=== PATIENT | female | born 1955 | race Caucasian/White ===

== ENCOUNTER 2021-06-22 10:17 | Observation (INO) | payer OTHER ==
[2021-06-19 10:09] LABS: BASOPHILS % (AUTO) 0.6 % (0.0-5.0); EOSINOPHILS % (AUTO) 1.9 % (0.0-8.0); HEMATOCRIT 41.2 % (36-48); LYMPHOCYTES % (AUTO) 39.9 % (21.0-51.0); MEAN CORPUSCULAR HEMOGLOBIN 27.8 pg (27.0-33.0); MEAN CORPUSCULAR HGB CONC 31.6 g/dL (32.0-36.0); MONOCYTES % (AUTO) 11.2 % (3.0-13.0); NEUTROPHILS % (AUTO) 46.2 % (40.0-77.0); PLATELET COUNT (AUTO) 294 K/uL (130-400); RED BLOOD CELL COUNT(AUTO) 4.68 MIL/uL (4.00-5.50); RED CELL DISTRIBUTION WIDTH 14.2 % (11.0-15.5); WHITE BLOOD COUNT (AUTO) 8.1 K/uL (4.8-10.8)
[2021-06-19 10:16] LABS: APPEARANCE,URINE Clear (CLEAR); BILIRUBIN,URINE Negative (NEGATIVE); COLOR,URINE Yellow (YELLOW); GLUCOSE, URINE (UA) Negative (NEGATIVE); KETONES,URINE Negative (NEGATIVE); LEUKOCYTE ESTERASE ,URINE Negative (NEGATIVE); NITRATE,URINE Negative (NEGATIVE); OCCULT BLOOD,URINE Negative (NEGATIVE); PH,URINE 6.5 (5.0-8.0); PROTEIN,URINE Negative (NEGATIVE); UROBILINOGEN,URINE 0.2 mg/dL (0.2-1.0)
[2021-06-19 10:18] LABS: CREATININE 0.9 mg/dL (0.5-1.5); POTASSIUM 4.4 mmol/L (3.5-5.1)
[2021-06-19 10:19] LABS: INR 0.97 (0.85-1.15); PROTHROMBIN TIME 10.6 SEC (9.6-11.6)
[2021-06-19 14:13] VITALS: BP 159/75
[2021-06-22] VITALS (24 sets, daily range): BP systolic 107–145; BP diastolic 65–83
[~2021-06-22] VITALS: Ht 170.2 cm; Wt 126.8 kg
[~2021-06-22 10:17] MED LIST: CEFAZOLIN SODIUM 1 GM VIAL IVP SCH; CETI10TA57 PO; FLUT16H NASAL; LOSA1TAB42 PO; MONT-39 PO; OMEP40CA21 PO; ROSU10TA28 PO
[2021-06-22] MEDS ORDERED: LACTATED RINGERS 1000ML 1,000 ML IV ONE (11:37)
[2021-06-22] MEDS: CLINDAMYCIN IVPB 900MG/50ML 50 ML IV ONE (12:30)
[2021-06-22] MEDS ORDERED: TRANEXAMIC ACID 1000MG/10ML ONE ×2 (13:39→17:26)
[2021-06-22] MEDS ORDERED: CLINDAMYCIN 900MG/6ML INJ ONE (13:39)
[2021-06-22] MEDS ORDERED: SUCCINYLCHOLINE CHLORIDE 20 MG/ML 10 ML VIAL ONE (14:24)
[2021-06-22] MEDS ORDERED: DEXAMETHASONE SOD PHOSPHATE 10MG/ML 1ML VIAL ONE (14:24)
[2021-06-22] MEDS ORDERED: NEOSTIGMINE 5MG/5ML SYR IV ONE (14:24)
[2021-06-22] MEDS ORDERED: GLYCOPYRROLATE 1 MG/5 ML SYRINGE ONE (14:24)
[2021-06-22] MEDS ORDERED: ONDANSETRON 4MG INJ ONE (14:24)
[2021-06-22] MEDS ORDERED: LIDOCAINE PF 100MG/5ML (2%) SYRINGE 5ML ONE (14:24)
[2021-06-22] MEDS ORDERED: PROPOFOL 10 MG/ML 20ML VIAL IV ONE (14:24)
[2021-06-22] MEDS ORDERED: MIDAZOLAM HCL 1 MG/ML 2ML VIAL ONE (14:24)
[2021-06-22] MEDS ORDERED: FENTANYL CITRATE PF 50 MCG/1 ML 2ML VIAL ONE (14:24)
[2021-06-22] MEDS ORDERED: ROCURONIUM 10MG/1ML SYR 10 MG/ML ML ONE (14:25)
[2021-06-22] MEDS ORDERED: MEPERIDINE-PF 25 MG/ML SYG ONE ×2 (14:26→17:45)
[2021-06-22] MEDS ORDERED: EPHEDRINE SULFATE 50 MG/ML AMPULE ONE (15:25)
[2021-06-22] MEDS ORDERED: FENTANYL CITRATE PF 50 MCG/1 ML 5ML AMP IV ONE (16:16)
[2021-06-22] MEDS ORDERED: KETOROLAC 30MG VIAL (30MG/ML) ONE (16:44)
[2021-06-22] MEDS ORDERED: LIDOCAINE HCL-MPF 1% 5ML AMP IJ ONE (16:58)
[2021-06-22] MEDS ORDERED: FERROUS FUMARATE 324 MG TABLET PO PRN (17:00)
[2021-06-22] MEDS ORDERED: KETOROLAC 15MG/ML VIAL (15MG/ML) IV PRN (17:00)
[2021-06-22] MEDS ORDERED: LIDOCAINE HCL-MPF 1% 2ML VIAL IV PRN (17:00)
[2021-06-22] MEDS ORDERED: DiphenhydrAMINE HCL 50 MG/ML VIAL IVP PRN (17:00)
[2021-06-22] MEDS ORDERED: KCL 20 MEQ ERTAB PO PRN (17:00)
[2021-06-22] MEDS ORDERED: POTASSIUM CHLORIDE 10% ELIXIR 20 MEQ/15 ML UDCUP PO PRN (17:00)
[2021-06-22] MEDS ORDERED: OXYCODONE HCL 5 MG TAB PO PRN (17:00)
[2021-06-22] MEDS ORDERED: POTASSIUM CHLORIDE 20MEQ/100ML 100 ML IV PRN (17:00)
[2021-06-22] MEDS ORDERED: CALCIUM CARB 500MG PO PRN (17:00)
[2021-06-22] MEDS ORDERED: ONDANSETRON 4MG INJ IVP PRN (17:00)
[2021-06-22] MEDS: CELECOXIB 200 MG CAP PO SCH (20:49)
[2021-06-22] MEDS: ATORVASTATIN 20 MG TABLET PO SCH (20:49)
[2021-06-22] MEDS: MONTELUKAST SODIUM 10 MG TAB PO SCH (20:49)
[2021-06-22] MEDS: OXYCODONE HCL 5 MG TAB PO PRN (20:50)
[2021-06-23] VITALS (7 sets, daily range): BP systolic 95–125; BP diastolic 54–68
[2021-06-23] MEDS: OXYCODONE HCL 5 MG TAB PO PRN ×5 (01:16→21:56)
[2021-06-23] MEDS: CLINDAMYCIN IVPB 900MG/50ML 50 ML IV SCH ×2 (01:16→06:21)
[2021-06-23] MEDS: ACETAMINOPHEN 500 MG TABLET PO SCH ×3 (01:17→17:00)
[2021-06-23] MEDS: 0.9%NACL 1000ML 1,000 ML IV SCH ×2 (03:00→13:00)
[2021-06-23 04:57] LABS: HEMATOCRIT 34.3 % (36-48); MEAN CORPUSCULAR HEMOGLOBIN 27.6 pg (27.0-33.0); MEAN CORPUSCULAR HGB CONC 30.9 g/dL (32.0-36.0); MEAN CORPUSCULAR VOLUME 89.3 fL (79-99); PLATELET COUNT (AUTO) 234 K/uL (130-400); RED BLOOD CELL COUNT(AUTO) 3.84 MIL/uL (4.00-5.50); RED CELL DISTRIBUTION WIDTH 14.2 % (11.0-15.5); WHITE BLOOD COUNT (AUTO) 12.1 K/uL (4.8-10.8)
[2021-06-23 05:40] LABS: CREATININE 0.7 mg/dL (0.5-1.5); POTASSIUM 4.1 mmol/L (3.5-5.1)
[2021-06-23] MEDS: TRAMADOL HCL 50 MG TABLET PO PRN ×2 (08:13→16:22)
[2021-06-23] MEDS: HYDROCHLOROTHIAZIDE 25 MG TABLET PO SCH (09:00)
[2021-06-23] MEDS: LOSARTAN 100 MG TABLET PO SCH (09:00)
[2021-06-23] MEDS: FLUTICASONE PROPIONATE 50MCG/SPRAY 16 GM BOTTLE EN SCH (09:00)
[2021-06-23] MEDS: CELECOXIB 200 MG CAP PO SCH ×2 (09:05→21:56)
[2021-06-23] MEDS: CETIRIZINE HCL 5 MG TABLET PO SCH (09:05)
[2021-06-23] MEDS: PANTOPRAZOLE 40 MG TAB DR PO SCH (09:05)
[2021-06-23] MEDS: APIXABAN 2.5 MG TABLET PO SCH ×2 (09:06→21:56)
[2021-06-23] MEDS: POLYETHYLENE GLYCOL 3350 17 GM POWD.PACK PO SCH (09:07)
[2021-06-23] MEDS ORDERED: PROMETHAZINE HCL 25 MG/ML 1ML AMPULE IM SCH (11:00)
[2021-06-23] MEDS: ATORVASTATIN 20 MG TABLET PO SCH (21:56)
[2021-06-23] MEDS: MONTELUKAST SODIUM 10 MG TAB PO SCH (21:56)
[2021-06-24] MEDS: ACETAMINOPHEN 500 MG TABLET PO SCH ×3 (00:26→17:09)
[2021-06-24] MEDS: OXYCODONE HCL 5 MG TAB PO PRN ×4 (02:15→17:08)
[2021-06-24 04:10] VITALS: BP 114/58
[2021-06-24 07:30] VITALS: BP 98/53
[2021-06-24] MEDS: CELECOXIB 200 MG CAP PO SCH (08:16)
[2021-06-24] MEDS: CETIRIZINE HCL 5 MG TABLET PO SCH (08:16)
[2021-06-24] MEDS: POLYETHYLENE GLYCOL 3350 17 GM POWD.PACK PO SCH (08:17)
[2021-06-24] MEDS: APIXABAN 2.5 MG TABLET PO SCH (08:17)
[2021-06-24] MEDS: PANTOPRAZOLE 40 MG TAB DR PO SCH (08:17)
[2021-06-24] MEDS: FLUTICASONE PROPIONATE 50MCG/SPRAY 16 GM BOTTLE EN SCH (08:18)
[2021-06-24] MEDS: HYDROCHLOROTHIAZIDE 25 MG TABLET PO SCH (08:20)
[2021-06-24] MEDS: LOSARTAN 100 MG TABLET PO SCH (08:20)
[2021-06-24 11:00] VITALS: BP 122/61
[2021-06-24 16:00] VITALS: BP 128/66
[2021-06-24] MEDS ORDERED: APIX2.5T PO (16:32)
[2021-06-24] MEDS ORDERED: HYDR-4060 PO (16:32)
[2021-06-25] MEDS ORDERED: BISACODYL 10 MG SUPP.RECT RC PRN (17:00)
== END 2021-06-24 19:35 | disposition home or self-care (01) ==
LOC: DAH 10:17 → 3AH 10:18 → DAH 17:00
PROVIDERS: ADMIT Orthopaedic Surgery; ATTEND Orthopaedic Surgery
DX: M17.11 Unilateral primary osteoarthritis, right knee (principal); Z20.822 Contact with and (suspected) exposure to COVID-19; D64.9 Anemia, unspecified; M21.161 Varus deformity, not elsewhere classified, right knee; I10 Essential (primary) hypertension; K57.30 Diverticulosis of large intestine without perforation or abscess without bleeding; K44.9 Diaphragmatic hernia without obstruction or gangrene; G89.29 Other chronic pain; M25.561 Pain in right knee; Z96.652 Presence of left artificial knee joint; Z79.899 Other long term (current) drug therapy; Z98.890 Other specified postprocedural states; Z87.891 Personal history of nicotine dependence
CPT/HCPCS: 27447; 36415 ×2; 64447; 76942; 80048 ×2; 81003; 85025; 85027; 85610; 87088; 87635; 87641; 88305; 88311; 93005; 96365; 96366; 96372; 96375; 97039 ×3; 97116 ×4; 97161; 97530 ×4; A4215; A4221; A4222; A4223; A4600; A4649 ×3; A4663; A4930 ×2; A5120; A9272; C1776; C9803; G0378 ×49; J0330; J1100; J1885 ×2; J2001; J2175 ×2; J2250; J2405 ×2; J2704; J2710; J3010 ×2; J3490 ×8; J7120 ×2

== ENCOUNTER → 2023-08-16 | Outpatient (CLI) | payer OTHER ==
[~2023-08-16] MED LIST changes: +APIX2.5T PO; -CEFAZOLIN SODIUM 1 GM VIAL IVP SCH; +HYDR-4060 PO
[2023-08-16 14:02] LABS: BASOPHILS # (AUTO) 0.03 K/uL (0.00-0.20); BASOPHILS % (AUTO) 0.3 % (0.0-5.0); EOSINOPHILS # (AUTO) 0.11 K/uL (0.00-0.70); HEMATOCRIT 46.1 % (36-48); IMMATURE GRANULOCYTE ABSOLUTE 0.02 K/uL (0-1); LYMPHOCYTES # (AUTO) 4.9 K/uL (1.0-4.8); LYMPHOCYTES % (AUTO) 43.2 % (21.0-51.0); MEAN CORPUSCULAR HEMOGLOBIN 29.5 pg (27.0-33.0); MEAN CORPUSCULAR HGB CONC 33.2 g/dL (32.0-36.0); MEAN CORPUSCULAR VOLUME 88.8 fL (79-99); MONOCYTES # (AUTO) 0.8 K/uL (0.1-1.0); MONOCYTES % (AUTO) 7.1 % (3.0-13.0); NEUTROPHILS # (AUTO) 5.5 K/uL (1.8-7.7); NEUTROPHILS % (AUTO) 48.2 % (40.0-77.0); PLATELET COUNT (AUTO) 305 K/uL (130-400); RED BLOOD CELL COUNT(AUTO) 5.19 MIL/uL (4.00-5.50); RED CELL DISTRIBUTION WIDTH 13.1 % (11.0-15.5); WHITE BLOOD COUNT (AUTO) 11.3 K/uL (4.8-10.8)
[2023-08-16 14:34] LABS: ALBUMIN 3.8 g/dL (3.5-5.0); BILIRUBIN,TOTAL 0.3 mg/dL (0.2-1.0); POTASSIUM 4.1 mmol/L (3.5-5.1); THYROID STIMULATING HORMONE 2.04 uIU/mL (0.36-3.74); TOTAL PROTEIN, SERUM 7.7 g/dL (6.0-8.3)
== END | disposition home or self-care (01) ==
LOC: LAB 13:15
PROVIDERS: ATTEND Internal Medicine Gastroenterology
DX: R10.13 Epigastric pain (principal); R63.4 Abnormal weight loss
CPT/HCPCS: 36415; 80053; 82150; 83690; 84443; 85025

== ENCOUNTER → 2023-08-24 | Outpatient (CLI) | payer OTHER ==
[~2023-08-24] MED LIST changes: +IOHEXOL 350 MG/ML 100ML INFUS..BTL IV ONE
== END | disposition home or self-care (01) ==
LOC: RAH 07:43
PROVIDERS: ATTEND Internal Medicine Gastroenterology
DX: K57.30 Diverticulosis of large intestine without perforation or abscess without bleeding (principal); R10.13 Epigastric pain; R63.4 Abnormal weight loss
CPT/HCPCS: 74178; Q9967; 36415; 80053; 82150; 83690; 84443; 85025

== ENCOUNTER → 2023-09-07 | Outpatient (CLI) | payer OTHER ==
[~2023-09-07] MED LIST changes: -IOHEXOL 350 MG/ML 100ML INFUS..BTL IV ONE; +IOHEXOL-350 75 ML VIAL IV ONE
== END | disposition home or self-care (01) ==
LOC: RAH 07:48
PROVIDERS: ATTEND Internal Medicine Gastroenterology
DX: K44.9 Diaphragmatic hernia without obstruction or gangrene (principal); K21.00 Gastro-esophageal reflux disease with esophagitis, without bleeding; R63.4 Abnormal weight loss
CPT/HCPCS: 71270; 74240; Q9967

== ENCOUNTER 2024-01-24 06:17 | Observation (INO) | payer OTHER ==
[2024-01-19 08:59] LABS: BASOPHILS # (AUTO) 0.05 K/uL (0.00-0.20); BASOPHILS % (AUTO) 0.5 % (0.0-5.0); EOSINOPHILS # (AUTO) 0.12 K/uL (0.00-0.70); EOSINOPHILS % (AUTO) 1.3 % (0.0-8.0); IMMATURE GRANULOCYTE ABSOLUTE 0.03 K/uL (0-1); LYMPHOCYTES # (AUTO) 3.1 K/uL (1.0-4.8); LYMPHOCYTES % (AUTO) 34.2 % (21.0-51.0); MEAN CORPUSCULAR HEMOGLOBIN 28.8 pg (27.0-33.0); MEAN CORPUSCULAR HGB CONC 32.2 g/dL (32.0-36.0); MEAN CORPUSCULAR VOLUME 89.5 fL (79-99); MONOCYTES # (AUTO) 0.7 K/uL (0.1-1.0); MONOCYTES % (AUTO) 7.7 % (3.0-13.0); NEUTROPHILS # (AUTO) 5.1 K/uL (1.8-7.7); PLATELET COUNT (AUTO) 283 K/uL (130-400); RED BLOOD CELL COUNT(AUTO) 5.03 MIL/uL (4.00-5.50); RED CELL DISTRIBUTION WIDTH 13.8 % (11.0-15.5); WHITE BLOOD COUNT (AUTO) 9.1 K/uL (4.8-10.8)
[2024-01-19 09:10] LABS: CREATININE 0.8 mg/dL (0.5-1.0); POTASSIUM 4.1 mmol/L (3.5-5.1)
[2024-01-19 09:16] VITALS: BP 125/70; PULSE 62; RESP 17
[2024-01-24] VITALS (27 sets, daily range): BP systolic 110–148; BP diastolic 63–81; PULSE 68–94; RESP 15–19; O2SAT 92–94
[~2024-01-24] VITALS: Ht 170.2 cm; Wt 108.6 kg
[~2024-01-24 06:17] MED LIST changes: -APIX2.5T PO; -FLUT16H NASAL; -HYDR-4060 PO; -IOHEXOL-350 75 ML VIAL IV ONE; +LOSA1TAB37 PO; -LOSA1TAB42 PO
[2024-01-24] MEDS ORDERED: SUCCINYLCHOLINE CHLORIDE 20 MG/ML 10 ML VIAL ONE (06:55)
[2024-01-24] MEDS ORDERED: PROPOFOL 10 MG/ML 20ML VIAL IV ONE (06:55)
[2024-01-24] MEDS ORDERED: LIDOCAINE PF 100MG/5ML (2%) SYRINGE 5ML ONE (06:55)
[2024-01-24] MEDS ORDERED: NEOSTIGMINE METHYLSULFATE 1MG/ML IV ONE (06:56)
[2024-01-24] MEDS ORDERED: DEXAMETHASONE SOD PHOSPHATE 10MG/ML 1ML VIAL ONE (06:56)
[2024-01-24] MEDS ORDERED: ROCURONIUM BROMIDE 10MG/1ML 5ML VL ONE (06:56)
[2024-01-24] MEDS ORDERED: MIDAZOLAM HCL 1 MG/ML 2ML VIAL ONE (06:56)
[2024-01-24] MEDS ORDERED: ONDANSETRON 4MG INJ ONE ×2 (06:56→08:44)
[2024-01-24] MEDS ORDERED: FENTANYL CITRATE PF 50 MCG/1 ML 2ML VIAL ONE ×4 (06:56→10:01)
[2024-01-24] MEDS ORDERED: GLYCOPYRROLATE 0.2 MG/ML 5 ML VIAL ONE (06:56)
[2024-01-24] MEDS: CLINDAMYCIN IVPB 900MG/50ML 50 ML IV ONE (07:21)
[2024-01-24] MEDS: LACTATED RINGERS 1000ML 1,000 ML IV ONE (07:21)
[2024-01-24] MEDS: BUPIVACAINE/PF 0.25% 30ML VIAL IJ ONE (08:24)
[2024-01-24] MEDS: SUGAMMADEX SODIUM 200 MG/2 ML VIAL IV ONE (10:26)
[2024-01-24] MEDS ORDERED: MORPHINE 4 MG SYG IV PRN (11:00)
[2024-01-24] MEDS ORDERED: LABETALOL 20MG SYG IV PRN (11:00)
[2024-01-24] MEDS ORDERED: HYDROCODONE/ACETAMINOPHEN 5/325 MG TAB PO PRN (11:00)
[2024-01-24] MEDS: MEPERIDINE-PF 25 MG/ML SYG ONE (11:40)
[2024-01-24] MEDS: LACTATED RINGERS 1000ML 1,000 ML IV SCH (12:57)
[2024-01-24] MEDS: ONDANSETRON 4MG INJ IVP PRN (13:21)
[2024-01-24] MEDS: KETOROLAC 15MG/ML VIAL (15MG/ML) IV PRN (17:42)
[2024-01-24] MEDS: FAMOTIDINE 20MG VIAL IV SCH (19:48)
[2024-01-25] VITALS: BP 127/68; PULSE 88; RESP 19
[2024-01-25 04:00] VITALS: BP 122/64; PULSE 84; RESP 19
[2024-01-25 07:55] VITALS: BP 110/54; PULSE 74; RESP 18
[2024-01-25] MEDS: LOSARTAN/HYDROCHLOROTHIAZIDE 50-12.5MG TABLET PO SCH (08:33)
[2024-01-25] MEDS: ENOXAPARIN SODIUM 40 MG/0.4 ML SYRINGE SQ SCH (08:34)
[2024-01-25 08:45] VITALS: O2SAT 95
[2024-01-25 11:40] VITALS: BP 129/73; PULSE 70; RESP 18
== END 2024-01-25 15:40 | disposition home or self-care (01) ==
LOC: DAH 06:17 → INTOOBSV 06:18 → DAHIP 06:18 → 3DH 12:00
PROVIDERS: ADMIT Surgery; ATTEND Surgery
DX: K44.9 Diaphragmatic hernia without obstruction or gangrene (principal); K21.00 Gastro-esophageal reflux disease with esophagitis, without bleeding; E66.01 Morbid (severe) obesity due to excess calories; R10.13 Epigastric pain; F17.210 Nicotine dependence, cigarettes, uncomplicated; E78.5 Hyperlipidemia, unspecified; I10 Essential (primary) hypertension; Z68.37 Body mass index [BMI] 37.0-37.9, adult
CPT/HCPCS: 80048; 85025; 86850 ×2; 86900 ×2; 86901 ×2; 36415 ×2; 93005; 96374; 96375; 43282; 97161; 97116; 96376; 96372; A6260; G0378 ×25; A4600; A4663; J7030; J7120 ×2; A4215 ×2; J3490 ×5; J3010 ×4; J1100; J0330; J0665; J2001; J2250; J2704; J2405 ×3; J2710; J2175; J1885 ×2; G0168; A4649 ×3; A4930 ×2; C1781; A4223; A4222; A4221; J1650; 43235

== ENCOUNTER → 2025-08-16 | Outpatient (CLI) | payer OTHER ==
[~2025-08-16] MED LIST changes: -ROSU10TA28 PO; +ROSU10TA98 PO
== END | disposition home or self-care (01) ==
LOC: RAH 09:23
PROVIDERS: ATTEND Nurse Practitioner Family
DX: Z12.31 Encounter for screening mammogram for malignant neoplasm of breast (principal)
CPT/HCPCS: 77067